=== PATIENT | male | born 1960 | race Caucasian/White ===

== ENCOUNTER 2024-09-30 09:37 | Outpatient (CLI) | payer BC ==
[2024-09-30] MEDS ORDERED: Iopamidol 300 61% 100 ML VIAL FS ONE (10:30)
== END 2024-09-30 09:38 | disposition home or self-care (01) ==
LOC: CSHCT 09:37
PROVIDERS: ATTEND Family Medicine
DX: R10.84 Generalized abdominal pain (principal)
CPT/HCPCS: 74177